=== PATIENT | female | born 1960 | race Caucasian/White ===

== ENCOUNTER 2018-11-10 10:01 | Emergency (ER) | payer SELFPAY ==
--- NOTE | 2018-11-10 11:03 | RADIOLOGY REPORT (SQ) ---
EXAM DESCRIPTION: CHEST 2 VIEWS COMPLETED DATE/TIME: 11/10/2018 10:36 am REASON FOR STUDY: cough congestion COMPARISON: Two-view chest 10/02/2014 EXAM PARAMETERS: NUMBER OF VIEWS: two views TECHNIQUE: Digital Frontal and Lateral radiographic views of the chest acquired. RADIATION DOSE: NA LIMITATIONS: none FINDINGS: LUNGS AND PLEURA: No opacities, masses or pneumothorax. No pleural effusion. MEDIASTINUM AND HILAR STRUCTURES: No masses or contour abnormalities. HEART AND VASCULAR STRUCTURES: Heart normal size. No evidence for failure. BONES: No acute findings. HARDWARE: Clips right upper quadrant post cholecystectomy. OTHER: No other significant finding. IMPRESSION: NO ACUTE RADIOGRAPHIC FINDING IN THE CHEST. TECHNICAL DOCUMENTATION: JOB ID: [id number] [employer]- All Rights Reserved Reading location - IP/workstation name: [email or web address]
[2018-11-10 11:26] LABS: A TYPE INFLUENZA AG NEGATIVE (NEGATIVE); B INFLUENZA AG NEGATIVE (NEGATIVE)
--- NOTE | 2018-11-10 11:26 | ER Document Report ---
ED Flu Like - General Chief Complaint: Flu Symptoms Stated Complaint: COUGH Time Seen by Provider: 11/10/18 10:19 Primary Care Provider: [facility] [Provider Group] - Follow up as needed SJ THURSTON MD [Primary Care Provider] - Follow up as needed Mode of Arrival: Ambulatory Information source: Patient Notes: 58-year-old female is ED for cough cold congestion body aches fever shortness of breath and cough since yesterday. Patient states she is a diabetic with asthma high blood pressure and high cholesterol but has not been to the doctor in over 2 years. She states she has been more concerned about the care of her is not taking care of herself. She states she was on lisinopril and metformin and some other medicines she does not remember what they were but has not taken any of these in about 2 years. Chest x-ray was clear and negative of any acute changes. Patient is alert oriented respirations regular and unlabored speaking in full sentences walks with a even steady gait. Strep and flu test as well as chest x-ray and Accu-Chek have been ordered. TRAVEL OUTSIDE OF THE [place] IN LAST 30 DAYS: No - HPI Onset: Yesterday Timing/Duration: Intermittent Quality of pain: Achy, Sharp Severity: Moderate Pain Level: 3 CO exposure: No Associated symptoms: Body/muscle aches, Chills, Nonproductive cough, Fever, Rhinnorhea, Sinus pain/drainage, Shortness of breath, Sore throat Similar symptoms previously: Yes Recently seen / treated by doctor: No - Related Data Allergies/Adverse Reactions: No Known Allergies Allergy (Verified 11/10/18 10:01) Past Medical History - General Information source: Patient - Social History Smoking Status: Current Every Day Smoker Cigarette use (# per day): Yes - 1/2 pack/day Chew tobacco use (# tins/day): No Smoking Education Provided: Yes - 4 minutes Frequency of alcohol use: Occasional Drug Abuse: None 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 Lives with: Parents Family History: Arthritis, CAD, CVA, DM, Hyperlipidemia, Hypertension, Thyroid Disfunction Patient has suicidal ideation: No Patient has homicidal ideation: No - Past Medical History Cardiac Medical History: Reports: Hx Hypercholesterolemia, Hx Hypertension Pulmonary Medical History: Reports: Hx Asthma EENT Medical History: Reports: None Neurological Medical History: Reports: None Endocrine Medical History: Reports: Hx Diabetes Mellitus Type 2 Renal/ Medical History: Reports: None Malignancy Medical History: Reports: None GI Medical History: Reports: None Musculoskeletal Medical History: Reports None Skin Medical History: Reports None Psychiatric Medical History: Reports: None Traumatic Medical History: Reports: None Infectious Medical History: Reports: None Past Surgical History: Reports: Hx Cholecystectomy - Immunizations Hx Diphtheria, Pertussis, Tetanus Vaccination: Yes - 2009 Review of Systems - Review of Systems Constitutional: Chills, Fever, Recent illness EENT: Nose discharge, Sinus pressure, Throat pain Cardiovascular: No symptoms reported Respiratory: Cough, Short of breath Gastrointestinal: No symptoms reported Genitourinary: No symptoms reported Female Genitourinary: No symptoms reported Musculoskeletal: Muscle pain, Muscle stiffness Skin: No symptoms reported Hematologic/Lymphatic: No symptoms reported Neurological/Psychological: No symptoms reported -: Yes All other systems reviewed and negative Physical Exam - Vital signs Vitals: Temp Pulse Resp BP Pulse Ox 99.3 F 102 H 19 156/80 H 96 11/10/18 10:05 11/10/18 10:05 11/10/18 10:05 11/10/18 10:05 11/10/18 10:05 Interpretation: Normal - General General appearance: Appears well, Alert - HEENT Head: Normocephalic, Atraumatic Eyes: Normal Pupils: PERRL Ears: Normal External canal: Normal Tympanic membrane: Normal Sinus: Normal Nasal: Purulent discharge, Swelling Mouth/Lips: Normal Mucous membranes: Normal Pharynx: Erythema, Post nasal drainage. No: Exudate Neck: Normal - Respiratory Respiratory status: No respiratory distress Chest status: Nontender Breath sounds: Nonproductive cough Chest palpation: Normal - Cardiovascular Rhythm: Regular Heart sounds: Normal auscultation Murmur: No - Abdominal Inspection: Normal Distension: No distension Bowel sounds: Normal Tenderness: Nontender Organomegaly: No organomegaly - Back Back: Normal, Nontender - Extremities General upper extremity: Normal inspection, Nontender, Normal color, Normal ROM, Normal temperature General lower extremity: Normal inspection, Nontender, Normal color, Normal ROM, Normal temperature, Normal weight bearing. No: Franklin's sign - Neurological Neuro grossly intact: Yes Cognition: Normal Orientation: AAOx4 Olga Coma Scale Eye Opening: Spontaneous [place] Coma Scale Verbal: Oriented Olga Coma Scale Motor: Obeys Commands [place] Coma Scale Total: 15 Speech: Normal Motor strength normal: LUE, RUE, LLE, RLE Sensory: Normal - Psychological Associated symptoms: Normal affect, Normal mood - Skin Skin Temperature: Warm Skin Moisture: Dry Skin Color: Normal Course - Re-evaluation Re-evalutation: 11/10/18 12:[address] Clement and discharge patient home with prescription for lisinopril. Accu-Chek was 182. Mother patient was instructed to please follow- up with primary doctor and get back on her blood pressure cholesterol and diabetes medicine. She states she has not been to see an eye doctor for the last 2 years and is not taking any of her medications. Chest x-ray was negative it was discussed with patient and a written report given to patient. Patient was discharged home with instructions for upper respiratory infection. After performing a Medical Screening Examination, I estimate there is LOW risk for ACUTE CORONARY SYNDROME, RESPIRATORY FAILURE, SEPSIS OR MENINGITIS, thus I consider the discharge disposition reasonable. I have reevaluated this patient multiple times and no significant life threatening changes are noted. The patient and I have discussed the diagnosis and risks, and we agree with discharging home with close follow-up. We also discussed returning to the Emergency Department immediately if new or worsening symptoms occur. We have discussed the symptoms which are most concerning (e.g., changing or worsening pain, trouble swallowing or breathing, neck stiffness, fever) that necessitate immediate return. - Vital Signs Vital signs: Temp Pulse Resp BP Pulse Ox 98.9 F 93 20 145/69 H 95 11/10/18 11:36 11/10/18 11:36 11/10/18 11:36 11/10/18 11:36 11/10/18 11:36 - Laboratory Laboratory results interpreted by me: 11/10/18 11:22 POC Glucose 182 H - Diagnostic Test Radiology reviewed: Image reviewed, Reports reviewed Discharge - Discharge Clinical Impression: Viral sore throat URI (upper respiratory infection) Qualifiers: URI type: unspecified viral URI Qualified Code(s): J06.9 - Acute upper respiratory infection, unspecified Condition: Stable Disposition: HOME, SELF-CARE Instructions: Family Physicians / Practices Additional Instructions: UPPER RESPIRATORY ILLNESS: You have a viral infection of the respiratory passages -- a "cold." This common infection causes nasal congestion, drainage, and often sore throat and cough. It is highly contagious. The disease usually lasts about 10 to 14 days. There is no "cure" for the viral infection -- it must run its course. If there is a complication, such as bacterial infection in the nose, sinuses, middle ear, or bronchial tubes, antibiotics may be required. The antibiotics won't affect the virus. Drink plenty of fluids. A humidifier may help. An expectorant medication or decongestant may make you more comfortable. Use acetaminophen or ibuprofen for fever or aches. See the doctor if fever persists over two days, if there is any significant worsening of your symptoms, or if you simply fail to improve as expected. LUIZA Inhibitor Medication "LUIZA inhibitor" drugs are used to lower high blood pressure (or to reduce the "work" of the heart in patients with heart failure). These drugs block an enzyme that makes your blood vessels constrict and makes you retain salt. The result is lower blood pressure. LUIZA inhibitors cause few side effects. The most common side effect is a dry nagging cough. Occasionally, lightheadedness may occur while you get used to the medicine. Some patients may retain extra potassium (this is a problem if you are taking potassium supplements, potassium-containing salt substitutes, or a potassium-retaining drug such as triamterene, spironolactone, or amiloride). If you are taking lithium, the lithium level must be rechecked after starting an LUIZA inhibitor. LUIZA inhibitors should NOT be used during . Contact the doctor or return if you develop severe lightheadedness, wheeze, weakness, palpitations or other new symptoms. USE OF ACETAMINOPHEN (Tylenol): Acetaminophen may be taken for pain relief or fever control. It's much safer than aspirin, offering a wider range of "safe" dosages. It is safe during . Some brand names are Tylenol, Panadol, Datril, Anacin 3, Tempra, and Liquiprin. Acetaminophen can be repeated every four hours. The following are maximum recommended dosages: >89 pounds or adults 650 mg to 900 mg Acetaminophen can be repeated every four hours. Maximum dose not to exceed 4000 mg a day. SMOKING: If you smoke, you should stop smoking. The tar and chemicals in cigarette smoke are harmful. Smoking has been shown to cause: emphysema chronic bronchitis lung cancer mouth and throat cancer stomach and pancreas cancer premature aging defects In addition, smoking increases ear and lung infections in children of smokers. Coricidin HB is the best cold medicine for you with your high blood pressure. This will not raise your blood pressure. You could also use Flonase nasal spray and salt and soda solution gargles for your nasal drainage and sore throat. Chloraseptic spray will also help with your sore throat. Do not use normal [id number] medications and do not use ibuprofen as these will actually raise your blood pressure. Please follow-up with the primary doctor as soon as possible I have given you a list of doctors. We have discussed the need for you to get back on your medications in order for you to take care of your . Salt and soda solution gargle 1 quart of water 1 tablespoon of salt 1 teaspoon of baking soda Mixed 3 ingredients together and boil for 1 minute Placed in a covered quart jar Use 1/2 ounce of cold solution to gargle 3 times a day FOLLOW-UP CARE: If you have been referred to a physician for follow-up care, call the physicians office for an appointment as you were instructed or within the next two days. If you experience worsening or a significant change in your symptoms, notify the physician immediately or return to the Emergency Department at any time for re-evaluation. Prescriptions: Lisinopril [Zestril] 5 mg PO DAILY #30 tablet Forms: Elevated Blood Pressure, Smoking Cessation Education, Return to Work Referrals: SJ THURSTON MD [Primary Care Provider] - Follow up as needed [facility] [Provider Group] - Follow up as needed
[2018-11-10 11:38] VITALS: BP 145/69
== END 2018-11-10 11:38 | disposition home or self-care (01) ==
LOC: ER 10:01
DX: J06.9 Acute upper respiratory infection, unspecified (principal); B97.89 Other viral agents as the cause of diseases classified elsewhere; J02.9 Acute pharyngitis, unspecified; R05 Cough; R09.81 Nasal congestion; M79.10 Myalgia, unspecified site; R50.9 Fever, unspecified; R06.02 Shortness of breath; E11.9 Type 2 diabetes mellitus without complications; J45.909 Unspecified asthma, uncomplicated; I10 Essential (primary) hypertension; F17.210 Nicotine dependence, cigarettes, uncomplicated
CPT/HCPCS: 71046; 82962; 87070; 87077; 87804; 87880; 99283; 99406

== ENCOUNTER 2019-04-17 18:40 | Emergency (ER) | payer OTHER ==
[2019-04-17] MEDS ORDERED: IBUPROFEN 800 MG TABLET PO ONE (19:04)
--- NOTE | 2019-04-17 19:18 | ER Document Report ---
Addendum entered and electronically signed by ANABEL WHITE NP 04/17/19 21:33: Procedures - Immobilization Left Knee Time completed: 20:15 Immobilizer type: Luis wrap Performed by: PCT Post-Proc Neuro Vasc Exam: Normal Alignment checked and good: Yes Original Note: ED Extremity Problem, Lower - General Chief Complaint: Knee Pain Stated Complaint: LEFT KNEE PAIN Time Seen by Provider: 04/17/19 18:58 Primary Care Provider: [facility] [Provider Group] - Follow up as needed SJ THURSTON MD [ACTIVE STAFF] - Follow up as needed Mode of Arrival: Ambulatory Information source: Patient Notes: 58-year-old female presented to ED for complaint of left knee pain for several weeks. 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 She states the left knee is gotten more more painful and is more painful to the back of the leg and the back of the knee. She is a heavy smoker. She denies any injuries. Patient is alert oriented respirations regular and unlabored speaking in full sentences. Patient is able to walk on the leg but it is painful. TRAVEL OUTSIDE OF THE [place] IN LAST 30 DAYS: No - HPI Patient complains to provider of: Pain, Swelling Location: Knee, Leg Occurred: Other - Gradually over the next several weeks Onset/Duration: Gradual Quality of pain: Achy, Throbbing Severity: Moderate Pain Level: 3 Recent injury: No Associated symptoms: Painful ambulation Exacerbated by: Hanging down, Movement, Walking Relieved by: Nothing - Related Data Allergies/Adverse Reactions: No Known Allergies Allergy (Verified 04/17/19 18:42) Past Medical History - General Information source: Patient - Social History Smoking Status: Current Every Day Smoker Cigarette use (# per day): Yes - Pack per day Chew tobacco use (# tins/day): No Smoking Education Provided: Yes - 4 minutes Frequency of alcohol use: None Drug Abuse: None 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 Lives with: Family Family History: Arthritis, CAD, CVA, DM, Hyperlipidemia, Hypertension, Thyroid Disfunction Patient has suicidal ideation: No Patient has homicidal ideation: No - Past Medical History Cardiac Medical History: Reports: Hx Hypercholesterolemia, Hx Hypertension Pulmonary Medical History: Reports: Hx Asthma EENT Medical History: Reports: None Neurological Medical History: Reports: None Endocrine Medical History: Reports: Hx Diabetes Mellitus Type 2 Renal/ Medical History: Reports: None Malignancy Medical History: Reports: None GI Medical History: Reports: None Musculoskeletal Medical History: Reports Hx Arthritis, Reports Hx Musculoskeletal Deformity, Reports Hx Musculoskeletal Trauma Skin Medical History: Reports None Psychiatric Medical History: Reports: None Traumatic Medical History: Reports: None Infectious Medical History: Reports: None Past Surgical History: Reports: Hx Cholecystectomy - Immunizations Hx Diphtheria, Pertussis, Tetanus Vaccination: Yes - 2009 Review of Systems - Review of Systems Constitutional: No symptoms reported EENT: No symptoms reported Cardiovascular: No symptoms reported Respiratory: No symptoms reported Gastrointestinal: No symptoms reported Genitourinary: No symptoms reported Female Genitourinary: No symptoms reported Musculoskeletal: Ankle swelling, Other - Left knee pain left leg pain Skin: No symptoms reported Hematologic/Lymphatic: No symptoms reported Neurological/Psychological: No symptoms reported -: Yes All other systems reviewed and negative Physical Exam - Vital signs Vitals: Temp Pulse Resp BP Pulse Ox 98.5 F 85 16 154/77 H 97 04/17/19 18:47 04/17/19 18:47 04/17/19 18:47 04/17/19 18:47 04/17/19 18:47 Interpretation: Normal - General General appearance: Appears well, Alert - HEENT Head: Normocephalic, Atraumatic Eyes: Normal Pupils: PERRL - Respiratory Respiratory status: No respiratory distress Chest status: Nontender Breath sounds: Normal Chest palpation: Normal - Cardiovascular Rhythm: Regular Heart sounds: Normal auscultation Murmur: No - Abdominal Inspection: Normal Distension: No distension Bowel sounds: Normal Tenderness: Nontender Organomegaly: No organomegaly - Back Back: Normal, Nontender - Extremities General upper extremity: Normal inspection, Nontender, Normal color, Normal ROM, Normal temperature General lower extremity: Normal color, Normal ROM, Normal temperature, Normal weight bearing. No: Franklin's sign Knee: Tender, Pain with ROM, Patellar tendon intact, Popliteal fossa tender, Tender joint line. No: Abrasion, Deformity, Dislocation, Drawer's test instability, Ecchymosis, Instability, Joint effusion, Laceration, Laxity with valgus stress, Laxity with varus stress, Unable to bear weight - Pain with range of motion Calf: Tender Ankle: Edema Foot: Nontender, Edema - Neurological Neuro grossly intact: Yes Cognition: Normal Orientation: AAOx4 Olga Coma Scale Eye Opening: Spontaneous [place] Coma Scale Verbal: Oriented [place] Coma Scale Motor: Obeys Commands [place] Coma Scale Total: 15 Speech: Normal Motor strength normal: LUE, RUE, LLE, RLE Sensory: Normal - Psychological Associated symptoms: Normal affect, Normal mood - Skin Skin Temperature: Warm Skin Moisture: Dry Skin Color: Normal Course - Re-evaluation Re-evalutation: 04/17/19 20:14 X-ray was discussed with patient and written report of x-ray given to patient. X-ray shows arthritis with no new injuries to the knee. Her venous Doppler was negative for any DVTs. Patient was treated with an Luis wrap in the emergency room she states she has questions at home. She was given instructions on ice packs warm packs Tylenol and Motrin. Patient was instructed to follow-up with orthopedics for them to determine if there was any further treatment for her. Patient was given written exercises to try. Patient was discharged home. - Vital Signs Vital signs: Temp Pulse Resp BP Pulse Ox 98.2 F 76 20 138/82 H 100 04/17/19 20:09 04/17/19 20:09 04/17/19 20:09 04/17/19 20:09 04/17/19 20:09 - Diagnostic Test Radiology reviewed: Image reviewed, Reports reviewed Discharge - Discharge Clinical Impression: Arthritis of left knee Pain in left knee Qualifiers: Chronicity: unspecified Qualified Code(s): M25.562 - Pain in left knee Condition: Stable Disposition: HOME, SELF-CARE Additional Instructions: Arthritis Your symptoms are due to arthritis. Arthritis is an inflammation of the joints. There are many types -- osteoarthritis (due to "wear and tear"), auto- immmune arthritis (such as rheumatoid, lupus, Davion's, and others), and crystal-induced arthritis (such as gout and pseudogout). The physician's examination, combined with laboratory tests, will determine the cause of your arthritis. All types of arthritis are treated with antiinflammatory medications. Other medication may be required for special types of arthritis, or if your problem does not respond to the antiinflammatory medicine. Local warmth may be helpful. Move the involved joints through the full range of motion daily. Mild exercise is usually still possible for most persons with arthritis (ask your physician). Swimming provides good exercise without damaging the joints. Contact the physician if you are worsening in any way. Luis Wrap A compression dressing (luis wrap) has been placed. This helps hold the area still. It limits swelling and internal bleeding. The wrap should be comfortably snug -- not tight. You should feel a sense of pressure, but not severe pain under the wrap. Unless the physician tells you otherwise, you can adjust the wrap for comfort. If the wrap causes symptoms suggesting it's too tight -- uncomfortable pressure, swelling or discoloration beyond the wrap, numbness, or severe pain -- you must loosen the wrap. If these symptoms don't resolve promptly, return for re-evaluation. Ibuprofen Ibuprofen is an excellent, safe drug for pain control. In addition, it has potent antiinflammatory effects which are beneficial, especially in the treatment of injuries, arthritis, or tendonitis. It's best to take ibuprofen with food. Persons with ulcer disease or allergy to aspirin should notify their physician of this before taking ibuprofen. Take the medication exactly as prescribed. Don't take additional doses unless instructed to do so by your doctor. If you develop wheezing, shortness of breath, hives, faintness, stomach pain, vomiting, or dark black stools, return for re-evaluation at once. Ice Packs Apply ice packs frequently against the painful area. Many different schedules are recommended, such as "20 minutes on, 20 minutes off" or "one hour ice, two hours rest." If you need to work, you may need to go longer between ice treatments. You should plan to have the area ice packed AT LEAST one fourth of the time. The ice should be applied over the wrap, tape, or splint, or over a layer of cloth -- not directly against the skin. Some ice bags have a built-in cloth and can be put directly on the skin. Warm Packs After approximately two days, apply gentle heat (such as a heating pad or hot water bottle) for about 20 to 30 minutes about every two hours -- at least four times daily. Warmth and elevation will help you make a more rapid recovery, and will ease the pain considerably. Do not use HOT heat, and never apply heat for longer than 30 minutes. The continuous heat can invisibly damage skin and muscles -- even when no burn is seen on the surface. Damaged muscles can make you MORE sore. Knee Exercise Program It's important to strengthen the muscles around the knee. This protects the injured area and stabilizes a knee that's been loosened by ligament injury. EARLY - Even when motion of the knee is painful (even when wearing a splint), you can begin isometric "quads" exercises. While sitting, hold the knee out, and contract the muscles to stiffen it. It shouldn't be straightened all the way -- stiffen it in a slightly-bent position. Lift the leg and draw a "T" with your foot, up to 100 times. When it becomes easy, add a weight on your foot. LATE - When the doctor advises you, you can begin moving the knee against resistance. The front muscles (quadriceps) are most important. While sitting at a [employer], straighten the knee forcefully while pushing a weight up with your ankle. Start with five to 10 pounds. Do 10 to 20 repetitions, increasing the weight as tolerated. Don't use more weight than is comfortable! Over a few weeks, work up to 35 to 50 pounds. Athletes should try to reach 70 to 90 pounds. Try Aspercreme lidocaine cream to the area or icy hot what ever would make you feel better FOLLOW-UP CARE: If you have been referred to a physician for follow-up care, call the physicians office for an appointment as you were instructed or within the next two days. If you experience worsening or a significant change in your symptoms, notify the physician immediately or return to the Emergency Department at any time for re-evaluation. Forms: Elevated Blood Pressure, Smoking Cessation Education, Return to Work Referrals: SJ THURSTON MD [ACTIVE STAFF] - Follow up as needed [facility] [Provider Group] - Follow up as needed
--- NOTE | 2019-04-17 19:21 | RADIOLOGY REPORT (SQ) ---
EXAM DESCRIPTION: KNEE LEFT 4 VIEW COMPLETED DATE/TIME: 04/17/2019 7:11 pm REASON FOR STUDY: pain to back of left knee COMPARISON: None. NUMBER OF VIEWS: Four views. TECHNIQUE: AP, lateral, and both oblique radiographic images acquired of the left knee. LIMITATIONS: None. FINDINGS: MINERALIZATION: Normal. BONES: No acute fracture or dislocation. No worrisome bone lesions. 3 compartment osteophytes. JOINT: Joint space narrowing medial compartment. No effusion. OTHER: No other significant finding. IMPRESSION: Osteoarthritis most prominent medial compartment. TECHNICAL DOCUMENTATION: JOB ID: [id number] [employer]- All Rights Reserved Reading location - IP/workstation name: [email or web address]
[2019-04-17 20:11] VITALS: BP 138/82
--- NOTE | 2019-04-18 03:12 | RADIOLOGY REPORT (SQ) ---
CLINICAL HISTORY: pain to back of left knee and leg no injury COMPARISON: None. TECHNIQUE: US EXTREMITY VEINS UNILATERAL on 04/17/2019 6:58 PM CDT FINDINGS: Bilateral common femoral and left femoral and popliteal veins are normally compressible with patent flow and augmentation. Visualized left calf veins are patent. IMPRESSION: No DVT.
== END 2019-04-17 20:20 | disposition home or self-care (01) ==
LOC: ER 18:40
DX: M17.12 Unilateral primary osteoarthritis, left knee (principal); M25.562 Pain in left knee; F17.210 Nicotine dependence, cigarettes, uncomplicated; E78.00 Pure hypercholesterolemia, unspecified; I10 Essential (primary) hypertension; E11.9 Type 2 diabetes mellitus without complications; Z90.49 Acquired absence of other specified parts of digestive tract
CPT/HCPCS: 93971; 99284; 99406